=== PATIENT | female | born 1980 | race Caucasian/White ===

== ENCOUNTER 2019-06-02 08:50 | Outpatient (CLI) | payer MEDICAID | END 2019-06-02 23:59 | disposition home or self-care (01) | LOC: RAD 08:50 | PROVIDERS: ATTEND Physician Assistant Medical | DX: G43.909 Migraine, unspecified, not intractable, without status migrainosus (principal); R55 Syncope and collapse; Z87.891 Personal history of nicotine dependence | CPT/HCPCS: 95816 ==